=== PATIENT | male | born 1980 | race Caucasian/White ===

== ENCOUNTER 2017-06-20 12:19 | Emergency (ER) | payer SELFPAY ==
[~2017-06-20] VITALS: Ht 177.8 cm; Wt 93.0 kg
[2017-06-20 12:21] VITALS: BP 178/83; PULSE 94; RESP 16; TEMP 98.3; O2SAT 99
--- NOTE | 2017-06-20 13:07 | RADRPT ---
EXAM DATE/TIME: 06/20/2017 12:54 [place] COMPARISON: No previous studies available for comparison. INDICATIONS : Fell on his right knee on concrete. MEDICAL HISTORY : None. SURGICAL HISTORY : None. ENCOUNTER: Initial ACUITY: 2 days PAIN SCORE: 8/10 LOCATION: Right knee FINDINGS: Four view examination of the right knee demonstrates no evidence of fracture or dislocation. Bony mi neralization is normal. The articular surfaces are intact. Likely small suprapatellar effusion. CONCLUSION: 1. Probable small suprapatellar effusion. 2. Otherwise, no acute fracture or dislocation. Ant Win MD on June 20, 2017 at 13:02 Board Certified Radiologist. This report was verified electronically.
[2017-06-20] MEDS ORDERED: NAPR500T2 PO (13:28)
--- NOTE | 2017-06-20 13:31 | PD ---
HPI Chief Complaint: Musculoskeletal Complaint Time Seen by Provider: 13:15 Travel History International Travel<30 days: No Contact w/Intl Traveler<30days: No Traveled to known affect area: No History of Present Illness HPI This is a 36-year-old male who presents to the emergency department having had a fall yesterday over a curb in a parking landing directly on his right knee. Since then he has been unable to weight-bear on his right knee, and he has severe pain, constant, worse with walking, improves with rest with no associated weakness or numbness. His pain did not improve today so he came to the emergency department. [facility] Past Medical History Narrative Medical T1DM Social History Tobacco Use: Yes Allergies-Medications (Allergen,Severity, Reaction): Coded Allergies: No Known Allergies (Unverified , 06/20/17) Review of Systems General / Constitutional: No: Fever, Chills Cardiovascular: No: Chest Pain or Discomfort Respiratory: No: Shortness of Breath Physical Exam Narrative GENERAL: Well-appearing, no acute distress, nontoxic SKIN: Abrasion over the right patella. HEAD: Atraumatic. Normocephalic. ENT: No nasal bleeding or discharge. Moist mucous membranes Vascular: 2+ bilateral DP pulses with normal capillary refill. MUSCULOSKELETAL: Effusion of the right knee, severe pain with flexion of the right knee, focally tender to palpation over the patella and over the lateral aspect of the right knee. NEUROLOGICAL: Awake and alert. Grossly intact in the right and left lower extremities. PSYCHIATRIC: Appropriate mood and affect; insight and judgment normal. Data Data Last Documented VS Vital Signs Date Time Temp Pulse Resp B/P (MAP) Pulse Ox O2 Delivery O2 Flow Rate FiO2 06/20/17 12:21 98.3 94 16 178/83 (114) 99 Room Air Orders Orders Knee, Complete (4vws) (06/20/17 ) [facility] Medical Decision Making Medical Screen Exam Complete: Yes Emergency Medical Condition: Yes Interpretation(s) afebrile, mild tachycardia, hypertension Last 24 hours Impressions Knee X-Ray 06/20/17 0000 Signed Impressions: Service Date/Time: Tuesday, June 20, 2017 12:54 - CONCLUSION: 1. Probable small suprapatellar effusion. 2. Otherwise, no acute fracture or dislocation. Ant Win MD Differential Diagnosis knee sprain, patella fracture, tibial fracture Narrative Course This is a 36 year old male who presents to the emergency department having had a fall on his right knee. He has a normal neurovascular exam. X-ray is reassuring with no acute fracture. He has a significant amount of swelling. Patient will be placed in a knee immobilizer and crutches. He will be referred to [facility]. Diagnosis Primary Impression: Knee sprain Qualified Codes: S83.8X1A - Sprain of other specified parts of right knee, initial encounter Patient Instructions: General Instructions Additional Instructions: If he develop numbness, weakness, or severe pain or coolness of the leg return to the emergency room. Med/Other Pt SpecificInfo: Prescription(s) given Scripts Naproxen (Naproxen) 500 Mg Tab 500 MG PO BID Y for PAIN SCALE 4 TO 10, #20 TAB 0 Refills Prov: Anastasia Pace MD 06/20/17 Disposition: 01 DISCHARGE HOME Condition: Stable Anastasia Pace MD Jun 20, 2017 13:31
== END 2017-06-20 14:15 | disposition home or self-care (01) ==
LOC: NEPD 12:19
DX: S83.8X1A Sprain of other specified parts of right knee, initial encounter (principal); W19.XXXA Unspecified fall, initial encounter; Z72.0 Tobacco use
CPT/HCPCS: 73564; 99283; E0113; L1830